=== PATIENT | female | born 1940 | race Caucasian/White ===

== ENCOUNTER 2021-07-06 08:42 | Outpatient (CLI) | payer OTHER ==
[~2021-07-06 08:42] MED LIST: AVAPRO300 MG; SIMVASTATIN20 MG; SYNTHROID125 MCG
== END 2021-07-06 08:45 | disposition home or self-care (01) ==
LOC: NUCLEAR 08:42
PROVIDERS: ATTEND Specialist
DX: G45.9 Transient cerebral ischemic attack, unspecified (principal)

== ENCOUNTER 2022-04-09 09:54 | Outpatient (CLI) | payer OTHER | END 2022-04-09 10:03 | disposition home or self-care (01) | LOC: TOM 09:54 | PROVIDERS: ATTEND Specialist | DX: C34.91 Malignant neoplasm of unspecified part of right bronchus or lung (principal) ==

== ENCOUNTER → 2024-04-26 07:01 | Outpatient (CLI) | payer OTHER | END | disposition home or self-care (01) | LOC: NUCLEAR 07:00 | PROVIDERS: ATTEND Specialist | DX: E21.3 Hyperparathyroidism, unspecified (principal); E21.2 Other hyperparathyroidism; N25.81 Secondary hyperparathyroidism of renal origin | CPT/HCPCS: 78072; A9500 ==